=== PATIENT | female | born 1975 | race Caucasian/White ===

== ENCOUNTER 2024-05-27 11:34 | Inpatient (IN) | payer MEDICAID ==
[~2024-05-27] VITALS: Ht 170.2 cm; Wt 73.5 kg
[~2024-05-27 11:34] MED LIST: Cipro500 MG PO; Cleocin HCl150 MG PO; Pyridium200 MG PO
[2024-05-27 12:47] LABS: BASOPHILS ABSOLUTE AUTO 0.05 K/mm3 (0.00-0.23); BASOPHILS PERCENT AUTO 0 % (0-2); EOSINOPHILS ABSOLUTE AUTO 0.06 K/mm3 (0.00-0.68); EOSINOPHILS PERCENT AUTO 1 % (0-6); Hematocrit 29.3 % (33.0-51.0); Hemoglobin 8.3 g/dL (11.5-16.0); IMMATURE GRAN ABSOLUTE AUTO 0.04 K/mm3 (0.00-0.10); IMMATURE GRAN PERCENT AUTO 0 % (0-1); LYMPHOCYTES ABSOLUTE AUTO 1.05 K/mm3 (0.84-5.20); LYMPHOCYTES PERCENT AUTO 8 % (21-46); MONOCYTES ABSOLUTE AUTO 0.33 K/mm3 (0.16-1.47); MONOCYTES PERCENT AUTO 3 % (4-13); Mean Corpuscular HGB 17.3 pg (26.0-34.0); Mean Corpuscular HGB Conc 28.3 g/dL (31.5-36.5); Mean Corpuscular Volume 61 fL (80-100); Mean Platelet Volume 8.8 fL (9.1-12.4); NEUTROPHILS ABSOLUTE AUTO 10.93 K/mm3 (1.96-9.15); NEUTROPHILS PERCENT AUTO 88 % (41-73); Platelet Count 606 K/mm3 (150-400); RDW Coefficient Variation 21.3 % (11.7-14.2); RDW Standard Deviation 44.6 fL (35.1-46.3); Red Blood Cell Count 4.79 M/mm3 (3.80-5.20); White Blood Cell Count 12.46 K/mm3 (4.00-11.30)
[2024-05-27 13:04] LABS: Albumin, Blood 3.4 g/dL (3.4-5.0); Albumin/Globulin Ratio 0.7 (0.8-1.8); Bilirubin, Total 0.5 mg/dL (0.1-1.0); Calcium, Blood 9.3 mg/dL (8.5-10.1); Creatinine, Blood 0.5 mg/dL (0.40-1.00); Globulin, Blood 4.9 g/dL (2.2-4.0); Potassium, Blood 2.8 mmol/L (3.5-5.5); Total Protein, Blood 8.3 g/dL (6.4-8.2)
[2024-05-27] MEDS ORDERED: FLU VACC TS2024-25(6MOS UP)/PF 45 MCG/0.5 ML SYRINGE IM ONE ×2 (14:45→17:35)
[2024-05-27] MEDS ORDERED: FentaNYL Citrate 50 MCG/ML 2 ML Injection IV PRN (14:45)
[2024-05-27] MEDS ORDERED: Potassium Chl 20MEQ/Water100ML 100 ML IV SCH (14:50)
[2024-05-27] MEDS ORDERED: NS 1,000 ML IV ONE (15:00)
[2024-05-27] MEDS ORDERED: NS 1,000 ML IV SCH (15:15)
[2024-05-27] MEDS ORDERED: Clindamycin 900mg in D5W 50ML 50 ML IV SCH (16:00)
[2024-05-27 16:32] VITALS: BP 173/101
[2024-05-27] MEDS ORDERED: FAMO20 PO (16:40)
[2024-05-27] MEDS ORDERED: LORA10ER PO (16:40)
--- NOTE | 2024-05-27 18:41 | NUR ---
PT ADMITTED TODAY FOR GANGRENE ON LEFT FOOT R/T CAT SCRATCH IN DECEMBER PER PT. PT HAS BEEN TRYING TO GET INSURANCE, BUT DID NOT QUALIFY FOR OHP, AND DOES NOT HAVE A PCP. A&OX4, VSS WITH HTN, RA. 1 PERSON STAND PIVOT TO BSC. PAIN MANAGED WITH FENTENYL X1. PT ORIENTED TO ROOM AND EDUCATED TO PLAN.
[2024-05-27 19:38] VITALS: BP 160/100
[2024-05-28] VITALS (28 sets, daily range): BP systolic 115–174; BP diastolic 72–106
--- NOTE | 2024-05-28 04:09 | NUR ---
SUMMARY: PT A/OX4, CALLS APPROPRIATELY TO SPECIFY NEEDS AND IS PLEASANT AND COOPERATIVE W/CARE. SHE'S NON-WT.BEARING TO LLE BUT CAN PIVOT T/F W/ASSIST TO BSC PRN. 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 IV ABX RECEIVED PER EMAR AND PRN FENTANYL PROVIDED FOR TOLERABLE RELIEF OF ASSOCIATED PAIN. SHE'S BEEN HYPERTENSIVE AT TIMES WHEN PAIN IS ELEVATED, ALL OTHER VSS. NO ACUTE CHANGES. WCTM AND REPORT TO DAY RN.
[2024-05-28 05:06] LABS: Hematocrit 23.8 % (33.0-51.0); Hemoglobin 6.8 g/dL (11.5-16.0); Mean Corpuscular HGB 17.3 pg (26.0-34.0); Mean Corpuscular HGB Conc 28.6 g/dL (31.5-36.5); Mean Corpuscular Volume 61 fL (80-100); Mean Platelet Volume 8.9 fL (9.1-12.4); Platelet Count 456 K/mm3 (150-400); RDW Coefficient Variation 21.2 % (11.7-14.2); Red Blood Cell Count 3.92 M/mm3 (3.80-5.20)
[2024-05-28 05:33] LABS: Ferritin, Serum 3 ng/mL (8-252); Iron Serum 19 ug/dL (50-170); Magnesium, Blood 1.5 mg/dL (1.6-2.4); Percent Saturation 5.4 % (15.0-50.0); Total Iron Binding Capacity 351 ug/dL (250-450)
[2024-05-28 05:36] LABS: Albumin, Blood 2.8 g/dL (3.4-5.0); Anion Gap 10 mmol/L (3-11); Blood Urea Nitrogen 4 mg/dL (8-24); Bun/Creatinine Ratio 9.7 (12.0-20.0); CO2, Blood 26 mmol/L (21-32); Calcium, Blood 8.4 mg/dL (8.5-10.1); Chloride, Blood 107 mmol/L (98-108); Creatinine, Blood 0.41 mg/dL (0.40-1.00); Glomerular Filtration Rate 123 (60-); Glucose, Blood 137 mg/dL (70-99); Phosphorus, Blood 3.3 mg/dL (2.5-4.9); Sodium, Blood 140 mmol/L (136-145)
[2024-05-28] MEDS ORDERED: NS 500 ML IV SCH (07:35)
[2024-05-28] MEDS ORDERED: Tranexamic Acid 100 ML IV SCH (07:55)
[2024-05-28] MEDS ORDERED: Mag Sulfate 1 GM/D5% 100ML 100 ML IV STA (08:11)
[2024-05-28] MEDS ORDERED: HydrALAZINE HCl 20 MG / ML 1ML Vial IV PRN (08:15)
[2024-05-28] MEDS ORDERED: Potassium Chloride 20 MEQ TabCR PO ONE (09:00)
[2024-05-28] MEDS ORDERED: Losartan Potassium 25 MG Tab PO SCH (09:00)
[2024-05-28] MEDS ORDERED: Ondansetron HCl 2 MG / ML 2ML Vial IV PRN ×2 (12:15→17:15)
--- NOTE | 2024-05-28 12:30 | NUR ---
NAUSEA/VOMITING PT STARTED VOMITING AFTER TAKING HER POTASSIUM CHLORIDE. PT CONTINUED TO VOMIT INTERMITTENLY AFTERWARDS. DR. KANG NOTIFED & PURVI ORDERED.
[2024-05-28] MEDS ORDERED: Lactated Ringer's 1,000 ML IV SCH (13:05)
[2024-05-28] MEDS ORDERED: propofoL 20 ML IV ONE (13:16)
[2024-05-28] MEDS ORDERED: FentaNYL Citrate 50 MCG/ML 2 ML Injection ONE ×3 (13:16→16:12)
--- NOTE | 2024-05-28 13:21 | NUR ---
PATIENT IN DAY SURGERY, TRANSPORTED VIA BED. SPOUSE, DEEPIKA, AT BEDSIDE. History, Chart, Medications and Allergies reviewed before start of procedure. Patient confirms NPO status and agrees with scheduled surgery.
[2024-05-28] MEDS ORDERED: Lidocaine 2%-Epineph 1:200000 20 ML SDV ONE (13:33)
[2024-05-28] MEDS ORDERED: Midazolam HCl 1MG / ML 2ML Vial ONE (13:33)
[2024-05-28] MEDS ORDERED: Bupivacaine 0.5% HCl 5 MG/ML 30MLVIAL ONE (13:33)
[2024-05-28] MEDS ORDERED: Dexmedetomidine HCL 200 MCG / 2 ML ONE (13:34)
[2024-05-28] MEDS ORDERED: Lidocaine HCl 2% 20 ML MDV ONE (13:35)
--- NOTE | 2024-05-28 13:59 | NUR ---
TIME OUT FOR NERVE BLOCK WTIH DR BERGER COMPLETED AT BEDSIDE IN DAY SURGERY. MONITORS ON INCLUDING INTERMITTENT BP, CONTINUOUS PULSE OXIMETRY. 2L O2/NC INTACT PER DR BERGER.
--- NOTE | 2024-05-28 14:20 | NUR ---
DR. BERGER FINISHED WITH NERVE BLOCK.
[2024-05-28] MEDS ORDERED: HYDROmorphone HCl/Pf 1MG SYR ONE ×2 (14:52→15:50)
[2024-05-28] MEDS ORDERED: Ondansetron HCl 2 MG / ML 2ML Vial ONE (14:58)
[2024-05-28] MEDS ORDERED: Dexamethasone Sod Phos 10 MG/ML 1ML VIAL ONE (14:58)
--- NOTE | 2024-05-28 15:07 | NUR ---
TAKEN TO DAY SURGERY AT 1300. BLOOD STILL RUNNING.
[2024-05-28] MEDS ORDERED: Naloxone HCl 0.4MG / ML 1ML Vial IV PRN (17:15)
[2024-05-28] MEDS ORDERED: Ondansetron 4 MG TAB PO PRN (17:20)
[2024-05-28] MEDS ORDERED: HYDROmorphone HCl/Pf 1MG SYR IV PRN (17:20)
[2024-05-28] MEDS ORDERED: FLU VACC TS2024-25(6MOS UP)/PF 45 MCG/0.5 ML SYRINGE IM SCH (17:20)
[2024-05-28] MEDS ORDERED: Magnesium Hydroxide Conc 10 ML UDC PO PRN (17:20)
[2024-05-28] MEDS ORDERED: Metoclopramide HCl 10 MG Tab PO PRN (17:25)
[2024-05-28] MEDS ORDERED: NS KCl 20mEq 1,000 ML IV SCH (17:25)
[2024-05-28] MEDS ORDERED: DiphenhydrAMINE HCL 25 MG Cap PO PRN (17:25)
[2024-05-28] MEDS ORDERED: OxyCODONE HCL 5 MG TAB PO PRN (17:25)
[2024-05-28] MEDS ORDERED: Acetaminophen 325 MG TABLET PO PRN (17:25)
[2024-05-28] MEDS ORDERED: Bisacodyl 10 MG Supp PR PRN (17:25)
[2024-05-28] MEDS ORDERED: Ketorolac Tromethamine 15mg Vial IV PRN (17:30)
[2024-05-28 18:10] LABS: Hematocrit 31.1 % (33.0-51.0); Hemoglobin 9.4 g/dL (11.5-16.0)
--- NOTE | 2024-05-28 19:32 | NUR ---
SHIFT SUMMARY PT RECIEVED 2 UNITS OF BLOOD TODAY. HAD L BKA TODAY. DRESSING INTACT AND CLEAN AT THIS TIME. HTN T/O THE DAY. MEDICATED WITH HYDRALAZINE TWICE TODAY. PT UNABLE TO TAKE LOSARTAN THIS AM DUE TO VOMITING. MEDICATED WITH ZOFRAN TWICE WITH GOD RELIEF TODAY. PT STARTED ON CONSISTANT CARB DIET. BLOOD SUGAR CHECKS STARTED. PT EDUCATED ON THIS AND WHAT THIS DIET ENTAILS. VERY RECEPTIVE TO TEACHING. PT HAD POSITIVE BLOOD CULTURES REPORTED THIS AM. MEDICATED WITH TORADOL AFTER HER SURGERY TODAY. VS REVIEWED. SATING IN THE 90S ON 2L O2 VIA NC. PT DENIES OTHER NEEDS AT THIS TIME. CALL LIGHT IN REACH.
[2024-05-28] MEDS ORDERED: Docusate Sodium 100 MG Cap PO SCH (21:00)
[2024-05-29 00:06] VITALS: BP 153/91
[2024-05-29 03:46] VITALS: BP 162/96
--- NOTE | 2024-05-29 05:11 | NUR ---
SUMMARY: PT A/OX4, CALLS APPROPRIATELY TO SPECIFY NEEDS AND IS PLEASANT AND COOPERATIVE W/CARE. SHE'S ON BEDREST S/P L.BKA, POD 0 THIS SHIFT. PUREWIC PLACED FOR IMMOBILITY AND DIFFICULTY USING BEDPAN BUT SHE IS NOW VOIDING W/O ANY ISSUE. SURGICAL DX REMAINS C/D/I TO L.STUMP AN LEG IS ELEVATED ON PILLOWS. PRN IV TORADOL AND PO OXYCODONE WERE PROVIDED FOR TOLERABLE RELIEF OF ASSOCIATED PAIN PER EMAR. IV ABX RECEIVED AND NS W/KCL IS INFUSING. BP WAS SLIGHTLY ELEVATED THIS AM BUT SHE WAS CURRENTLY IN DISCOMFORT. LOSARTAN TO BE COMMENCED THIS AM AND NO PRN HYDRALZINE HAS BEEN REQUIRED. NO ACUTE CHANGES, VSS/AFEBRILE. WCTM AND REPORT TO DAY RN.
[2024-05-29 06:01] LABS: BASOPHILS ABSOLUTE AUTO 0.01 K/mm3 (0.00-0.23); BASOPHILS PERCENT AUTO 0 % (0-2); EOSINOPHILS PERCENT AUTO 0 % (0-6); Hematocrit 28.8 % (33.0-51.0); Hemoglobin 8.8 g/dL (11.5-16.0); IMMATURE GRAN ABSOLUTE AUTO 0.03 K/mm3 (0.00-0.10); IMMATURE GRAN PERCENT AUTO 0 % (0-1); LYMPHOCYTES ABSOLUTE AUTO 1.07 K/mm3 (0.84-5.20); LYMPHOCYTES PERCENT AUTO 10 % (21-46); MONOCYTES ABSOLUTE AUTO 0.52 K/mm3 (0.16-1.47); MONOCYTES PERCENT AUTO 5 % (4-13); Mean Corpuscular HGB 20.2 pg (26.0-34.0); Mean Corpuscular HGB Conc 30.6 g/dL (31.5-36.5); Mean Platelet Volume 8.9 fL (9.1-12.4); NEUTROPHILS ABSOLUTE AUTO 9.19 K/mm3 (1.96-9.15); NEUTROPHILS PERCENT AUTO 85 % (41-73); Platelet Count 402 K/mm3 (150-400); RDW Coefficient Variation 25.5 % (11.7-14.2); RDW Standard Deviation 58.8 fL (35.1-46.3); Red Blood Cell Count 4.36 M/mm3 (3.80-5.20); White Blood Cell Count 10.82 K/mm3 (4.00-11.30)
[2024-05-29 06:04] LABS: Mean Corpuscular Volume 66 fL (80-100)
[2024-05-29 06:29] LABS: Magnesium, Blood 1.5 mg/dL (1.6-2.4)
[2024-05-29 07:38] LABS: Albumin, Blood 2.6 g/dL (3.4-5.0); Albumin/Globulin Ratio 0.6 (0.8-1.8); Bilirubin, Total 0.5 mg/dL (0.1-1.0); Bun/Creatinine Ratio 8.1 (12.0-20.0); C-REACTIVE PROTEIN, EXT RANGE 3.99 mg/dL (0.000-0.300); Calcium, Blood 7.8 mg/dL (8.5-10.1); Creatinine, Blood 0.49 mg/dL (0.40-1.00); Potassium, Blood 3.6 mmol/L (3.5-5.5); Total Protein, Blood 6.6 g/dL (6.4-8.2)
[2024-05-29] MEDS ORDERED: Mag Sulfate 1 GM/D5% 100ML 100 ML IV STA (07:42)
[2024-05-29 07:57] VITALS: BP 164/100
[2024-05-29 15:42] VITALS: BP 165/97
[2024-05-29 17:00] VITALS: BP 175/99
[2024-05-29] MEDS ORDERED: Enoxaparin 40 MG/0.4 ML SYR SC SCH (17:00)
--- NOTE | 2024-05-29 18:13 | NUR ---
SHIFT SUMMARY PATIENT MEDICATED WITH TORADOL AND PO OXYCODONE ALTERNATING WITH GOOD EFFECT. DENIES NAUSEA AND SHORTNESS OF BREATH. TOLERATING REGULAR DIET WELL. IV FLUIDS DISCONTINUED. WORKED WITH PT AND OT. PANTIENT ABLE TO TOLERATE DANGLING AT SIDE OF BED. STUMP DRESSING C/D/I. DR. VILLATORO TO CHANGE DRESSING TOMORROW. PLEASANT AND COOPERATIVE WITH CARE.
[2024-05-29 19:07] VITALS: BP 155/87
[2024-05-30 02:55] VITALS: BP 160/91
[2024-05-30 04:53] LABS: BASOPHILS ABSOLUTE AUTO 0.04 K/mm3 (0.00-0.23); BASOPHILS PERCENT AUTO 1 % (0-2); EOSINOPHILS ABSOLUTE AUTO 0.29 K/mm3 (0.00-0.68); EOSINOPHILS PERCENT AUTO 4 % (0-6); Hematocrit 28.9 % (33.0-51.0); Hemoglobin 8.7 g/dL (11.5-16.0); IMMATURE GRAN ABSOLUTE AUTO 0.01 K/mm3 (0.00-0.10); IMMATURE GRAN PERCENT AUTO 0 % (0-1); LYMPHOCYTES ABSOLUTE AUTO 1.37 K/mm3 (0.84-5.20); LYMPHOCYTES PERCENT AUTO 18 % (21-46); MONOCYTES PERCENT AUTO 5 % (4-13); Mean Corpuscular HGB 19.7 pg (26.0-34.0); Mean Corpuscular HGB Conc 30.1 g/dL (31.5-36.5); Mean Corpuscular Volume 66 fL (80-100); Mean Platelet Volume 8.7 fL (9.1-12.4); NEUTROPHILS PERCENT AUTO 73 % (41-73); Platelet Count 422 K/mm3 (150-400); RDW Standard Deviation 59.7 fL (35.1-46.3); Red Blood Cell Count 4.41 M/mm3 (3.80-5.20); White Blood Cell Count 7.71 K/mm3 (4.00-11.30)
--- NOTE | 2024-05-30 04:57 | NUR ---
SHIFT SUMMARY; PT ALERT ORIENTED X 4ABLE TO VERBALIZE NEEDS. S/P LT BKA WITH DRESSING INTACT TO AREA. C/O PAIN TO AREA MEDICATED WITH OXYCODONE WITH GOOD PAIN RELIEF. C/O NAUSEA WITH 1 EPISODE OF VOMITING. MEDICATED WITH ZOFRAN WITH GOOD RELIEF. VSS ON RA SATTING AT 96%. REMAINS ON A BEDSIDE CONTINUOUS PU;LSE OX. IV IS SL. REMAINS NON WT BEARING TO LT LEG, FSBS AC AND HS WAS 153. HAS A PUREWICK FOR VOIDING R/T PAIN VOIDING PINK TINGED URINE R/T HER BEING ON HER PERIOD. SHE HAS A ALLERGY TO MULTIPLE FOODS SO HER BRINGS IN HER FOOD FROM HOME. SHE HAS HAD NO BM X 5 DAYS. TOOK HER COLACE BUT MAY NEED SOMETHING MORE FOR BOWEL CARE. SHES CURRENTLY RESTING IN BED AT THIS TIME WITH CALL LIGHT IN REACH
[2024-05-30 05:33] LABS: Albumin, Blood 2.7 g/dL (3.4-5.0); Albumin/Globulin Ratio 0.7 (0.8-1.8); Bilirubin, Total 0.5 mg/dL (0.1-1.0); Bun/Creatinine Ratio 6.2 (12.0-20.0); Creatinine, Blood 0.48 mg/dL (0.40-1.00); Magnesium, Blood 1.6 mg/dL (1.6-2.4); Total Protein, Blood 6.7 g/dL (6.4-8.2)
[2024-05-30 07:27] VITALS: BP 169/99
[2024-05-30] MEDS ORDERED: Potassium Chloride 20 MEQ TabCR PO ONE (08:00)
[2024-05-30] MEDS ORDERED: Arginine/Glutamine/Calcium Hmb 1 Packet PO SCH (11:35)
[2024-05-30] MEDS ORDERED: NS 250 ML IV PRN (12:30)
[2024-05-30 15:59] VITALS: BP 168/97
[2024-05-30 18:08] VITALS: BP 159/92
--- NOTE | 2024-05-30 18:09 | NUR ---
SHIFT SUMMARY PT A&OX4, UP IN THE CHAIR AND BSC T/O SHIFT, TOLERATING PO, VOIDING, AND PAIN MANAGED PER EMAR. PT HYPERTENSIVE AND MEDICATED PER EMAR. BP MINIMALLY IMPROVED W/ PRN. STUMP DRESSING CHANGED BY THIS SHIFT. PT WORKED W/ PHYSICAL AND OCCUPATIONAL THERAPY, SEE THERAPY NOTES. NO OTHER ACUTE CHANGES. CALL LIGHT WITHIN REACH AND PT ABLE TO MAKE NEEDS KNOWN.
[2024-05-30 19:29] VITALS: BP 150/92
--- NOTE | 2024-05-31 03:08 | NUR ---
SHIFT SUMMARY; PT ALERT ORIENTED X 4, SLEPTMOST OF THE SHIFT, LT BKA WITH DRESSING INTACT. SHE STATED THAT HER PAINS UNDER CONTROL. HER STAYED AT THE BEDSIDE.REMAINS NON WEIGHT BEARING TO LT LEG. PUREWICK ON IN BED WITH DARK RED BLEEDING R/T HER MENSRUAL CYCLE. FSBS ARE AC AND HS WAS 121. REMAINS ON A CONTINUOUS BEDSIDE PULSE OX MONITOR. VSS ON RA. SLEEPING IN BED AT THIS TIME
[2024-05-31 04:53] VITALS: BP 174/107
[2024-05-31 05:10] LABS: BASOPHILS ABSOLUTE AUTO 0.03 K/mm3 (0.00-0.23); BASOPHILS PERCENT AUTO 1 % (0-2); EOSINOPHILS ABSOLUTE AUTO 0.37 K/mm3 (0.00-0.68); EOSINOPHILS PERCENT AUTO 7 % (0-6); Hematocrit 31.8 % (33.0-51.0); Hemoglobin 9.5 g/dL (11.5-16.0); IMMATURE GRAN ABSOLUTE AUTO 0.01 K/mm3 (0.00-0.10); IMMATURE GRAN PERCENT AUTO 0 % (0-1); LYMPHOCYTES ABSOLUTE AUTO 1.63 K/mm3 (0.84-5.20); LYMPHOCYTES PERCENT AUTO 31 % (21-46); MONOCYTES ABSOLUTE AUTO 0.31 K/mm3 (0.16-1.47); MONOCYTES PERCENT AUTO 6 % (4-13); Mean Corpuscular HGB 19.7 pg (26.0-34.0); Mean Corpuscular HGB Conc 29.9 g/dL (31.5-36.5); Mean Corpuscular Volume 66 fL (80-100); Mean Platelet Volume 8.4 fL (9.1-12.4); NEUTROPHILS ABSOLUTE AUTO 2.94 K/mm3 (1.96-9.15); NEUTROPHILS PERCENT AUTO 56 % (41-73); Platelet Count 457 K/mm3 (150-400); RDW Standard Deviation 61.8 fL (35.1-46.3); Red Blood Cell Count 4.82 M/mm3 (3.80-5.20); White Blood Cell Count 5.29 K/mm3 (4.00-11.30)
[2024-05-31 05:40] VITALS: BP 162/88
[2024-05-31 05:46] LABS: Bun/Creatinine Ratio 16.7 (12.0-20.0); Calcium, Blood 8.9 mg/dL (8.5-10.1); Creatinine, Blood 0.42 mg/dL (0.40-1.00); Magnesium, Blood 1.5 mg/dL (1.6-2.4); Potassium, Blood 3.4 mmol/L (3.5-5.5)
[2024-05-31] MEDS ORDERED: Mag Sulfate 1 GM/D5% 100ML 100 ML IV STA (08:01)
[2024-05-31 08:48] VITALS: BP 153/91
[2024-05-31] MEDS ORDERED: Losartan Potassium 50 MG Tab PO SCH (09:00)
[2024-05-31] MEDS ORDERED: FAMO20 PO (12:44)
[2024-05-31] MEDS ORDERED: LOSA50 PO (12:44)
[2024-05-31] MEDS ORDERED: KETO10 PO (12:45)
[2024-05-31] MEDS ORDERED: OXYC5 PO (12:45)
--- NOTE | 2024-05-31 14:19 | NUR ---
DISCHARGE NOTE PT DISCHARGED HOME AT APPROX 1410. PT PROVIDED W/ VERBAL AND WRITTEN INSTRUCTIONS. PT A&OX4, VSS, AMB TO THE CHAIR AND BSC W/ ASSIST, TOLERATING PO, VOIDING, AND PAIN MANAGED PER EMAR. PT GIVEN HARD SCRIPTS AND PROVIDED W/ STUMP SOCKS AND DRESSING SUPPLIES. BELONGINGS WERE RETURNED AND PT ESCOURTED OUT VIA W/C BY PT'S .
== END 2024-05-31 14:26 | disposition home health service (06) | DRG 240 ==
LOC: ER 11:34 → MEDS 14:44
PROVIDERS: Hospitalist; Orthopaedic Surgery; Physician Assistant; ADMIT Internal Medicine
PROC: 30233N1 Transfusion of Nonautologous Red Blood Cells into Peripheral Vein, Percutaneous Approach (ICD-10-PCS; 2024-05-28)
PROC: 0Y6J0Z1 Detachment at Left Lower Leg, High, Open Approach (ICD-10-PCS; principal; 2024-05-28 14:00)
DX: E11.52 Type 2 diabetes mellitus with diabetic peripheral angiopathy with gangrene (principal); I96 Gangrene, not elsewhere classified; J45.909 Unspecified asthma, uncomplicated; D57.3 Sickle-cell trait; E87.6 Hypokalemia; F41.9 Anxiety disorder, unspecified; K21.9 Gastro-esophageal reflux disease without esophagitis; Z88.1 Allergy status to other antibiotic agents; Z88.0 Allergy status to penicillin; Z88.2 Allergy status to sulfonamides; Z88.8 Allergy status to other drugs, medicaments and biological substances; Z90.49 Acquired absence of other specified parts of digestive tract; Z98.890 Other specified postprocedural states; Z87.891 Personal history of nicotine dependence; Z79.2 Long term (current) use of antibiotics
CPT/HCPCS: 36415; 36430; 73610; 80048; 80053; 80069; 81025; 82728; 82947; 83540; 83550; 83605; 83735; 84100; 84443; 85014; 85018; 85025; 85027; 85651; 86140; 86850; 86900; 86901; 86920; 86923; 87040; 87077; 88307; 93005; 93010; 94760; 94762; 97110; 97162; 97165; 97530; 97535; 99284-25; A9270; J0360; J1100; J1170; J1650; J1885; J2250; J2405; J2704; J3010; J3475; J3480; J7030; J7040; J7120; P9016

== ENCOUNTER → 2025-02-28 | Outpatient (CLI) | payer OTHER ==
[~2025-02-28] MED LIST changes: +FAMO20 PO; +KETO10 PO; +LORA10ER PO; +LOSA50 PO; +OXYC5 PO
[2025-02-28 11:23] LABS: BASOPHILS ABSOLUTE AUTO 0.06 K/mm3 (0.00-0.23); BASOPHILS PERCENT AUTO 1 % (0-2); EOSINOPHILS ABSOLUTE AUTO 0.24 K/mm3 (0.00-0.68); EOSINOPHILS PERCENT AUTO 4 % (0-6); Hematocrit 25.7 % (33.0-51.0); Hemoglobin 6.9 g/dL (11.5-16.0); IMMATURE GRAN ABSOLUTE AUTO 0.01 K/mm3 (0.00-0.10); IMMATURE GRAN PERCENT AUTO 0 % (0-1); LYMPHOCYTES ABSOLUTE AUTO 2.51 K/mm3 (0.84-5.20); LYMPHOCYTES PERCENT AUTO 41 % (21-46); MONOCYTES ABSOLUTE AUTO 0.38 K/mm3 (0.16-1.47); MONOCYTES PERCENT AUTO 6 % (4-13); Mean Corpuscular HGB Conc 26.8 g/dL (31.5-36.5); Mean Corpuscular Volume 58 fL (80-100); NEUTROPHILS ABSOLUTE AUTO 2.86 K/mm3 (1.96-9.15); NEUTROPHILS PERCENT AUTO 47 % (41-73); NRBC ABSOLUTE 0.00 K/mm3 (0.00-0.02); NRBC Auto 0.0 /100 WBC (0.0-0.2); Platelet Count 422 K/mm3 (150-400); RDW Coefficient Variation 20.0 % (11.7-14.2); RDW Standard Deviation 40.1 fL (35.1-46.3)
[2025-02-28 12:12] LABS: Alanine Aminotransfer (ALT/SGP 16 U/L (12-78); Albumin, Blood 3.8 g/dL (3.4-5.0); Albumin/Globulin Ratio 1.0 (0.8-1.8); Anion Gap 7 mmol/L (3-11); Aspartate Aminotrans (AST/SGOT 8 U/L (12-37); Bilirubin, Total 0.2 mg/dL (0.1-1.0); Blood Urea Nitrogen 14 mg/dL (8-24); CHOL/HDL RATIO 3.6; CO2, Blood 25 mmol/L (21-32); Calcium, Blood 8.8 mg/dL (8.5-10.1); Chloride, Blood 108 mmol/L (98-108); Cholesterol 171 mg/dL (50-200); Creatinine, Blood 0.53 mg/dL (0.40-1.00); Globulin, Blood 3.7 g/dL (2.2-4.0); Glucose, Blood 109 mg/dL (70-99); HDL Cholesterol 48 mg/dL (>39); LDL/HDL RATIO 2.2; Low Density Lipoprotein Chol 104 mg/dL (0-110); Potassium, Blood 3.9 mmol/L (3.5-5.5); Sodium, Blood 136 mmol/L (136-145); Total Iron Binding Capacity 417 ug/dL (250-450); Total Protein, Blood 7.5 g/dL (6.4-8.2); Triglycerides 94 mg/dL (30-160); Very Low Density Lipoprot Chol 18 mg/dL (6-32)
[2025-02-28 12:15] LABS: Ferritin, Serum <1 ng/mL (8-252)
== END ==
LOC: LAB 10:37 → LAB SHORT 10:37
PROVIDERS: Nurse Practitioner Family
DX: D50.9 Iron deficiency anemia, unspecified (principal); R73.9 Hyperglycemia, unspecified
CPT/HCPCS: 80053; 80061; 82728; 83036; 83540; 83550; 85025

== ENCOUNTER 2025-03-20 11:01 | Day surgery (SDC) | payer OTHER ==
[2025-03-19 12:17] LABS: BASOPHILS ABSOLUTE AUTO 0.03 K/mm3 (0.00-0.23); BASOPHILS PERCENT AUTO 0 % (0-2); EOSINOPHILS ABSOLUTE AUTO 0.12 K/mm3 (0.00-0.68); EOSINOPHILS PERCENT AUTO 1 % (0-6); Hematocrit 25.4 % (33.0-51.0); Hemoglobin 6.8 g/dL (11.5-16.0); IMMATURE GRAN ABSOLUTE AUTO 0.02 K/mm3 (0.00-0.10); IMMATURE GRAN PERCENT AUTO 0 % (0-1); LYMPHOCYTES ABSOLUTE AUTO 1.71 K/mm3 (0.84-5.20); LYMPHOCYTES PERCENT AUTO 21 % (21-46); MONOCYTES ABSOLUTE AUTO 0.33 K/mm3 (0.16-1.47); MONOCYTES PERCENT AUTO 4 % (4-13); Mean Corpuscular HGB Conc 26.8 g/dL (31.5-36.5); Mean Corpuscular Volume 58 fL (80-100); NEUTROPHILS ABSOLUTE AUTO 6.10 K/mm3 (1.96-9.15); NEUTROPHILS PERCENT AUTO 73 % (41-73); NRBC ABSOLUTE 0.00 K/mm3 (0.00-0.02); NRBC Auto 0.0 /100 WBC (0.0-0.2); Platelet Count 573 K/mm3 (150-400); RDW Coefficient Variation 20.9 % (11.7-14.2); RDW Standard Deviation 40.5 fL (35.1-46.3)
[2025-03-20] MEDS ORDERED: NS 250 ML IV SCH (11:35)
[2025-03-20 13:36] VITALS: BP 166/101
[2025-03-20 13:57] VITALS: BP 151/90
[2025-03-20 14:55] VITALS: BP 146/105
[2025-03-20 15:35] VITALS: BP 154/102
== END 2025-03-20 15:39 | disposition home or self-care (01) ==
LOC: ATC 11:01 → EDSTATUS 03-22 13:30
PROVIDERS: Registered Nurse Oncology
DX: D50.9 Iron deficiency anemia, unspecified (principal); D57.3 Sickle-cell trait; E78.5 Hyperlipidemia, unspecified; K21.9 Gastro-esophageal reflux disease without esophagitis; R73.03 Prediabetes; Z87.891 Personal history of nicotine dependence; Z79.899 Other long term (current) drug therapy; Z88.0 Allergy status to penicillin; Z88.1 Allergy status to other antibiotic agents; Z88.2 Allergy status to sulfonamides; Z88.3 Allergy status to other anti-infective agents; Z88.8 Allergy status to other drugs, medicaments and biological substances; Z91.013 Allergy to seafood; Z89.512 Acquired absence of left leg below knee
CPT/HCPCS: 36415; 36430; 85025; 86850; 86900; 86901; 86923; J7050; P9016

== ENCOUNTER → 2025-07-23 | Outpatient (CLI) | payer OTHER ==
[2025-07-23 16:33] LABS: BASOPHILS ABSOLUTE AUTO 0.03 K/mm3 (0.00-0.23); BASOPHILS PERCENT AUTO 1 % (0-2); EOSINOPHILS ABSOLUTE AUTO 0.21 K/mm3 (0.00-0.68); EOSINOPHILS PERCENT AUTO 4 % (0-6); Hematocrit 36.3 % (33.0-51.0); Hemoglobin 11.5 g/dL (11.5-16.0); IMMATURE GRAN ABSOLUTE AUTO 0.01 K/mm3 (0.00-0.10); IMMATURE GRAN PERCENT AUTO 0 % (0-1); LYMPHOCYTES ABSOLUTE AUTO 2.17 K/mm3 (0.84-5.20); LYMPHOCYTES PERCENT AUTO 40 % (21-46); MONOCYTES ABSOLUTE AUTO 0.23 K/mm3 (0.16-1.47); MONOCYTES PERCENT AUTO 4 % (4-13); Mean Corpuscular HGB Conc 31.7 g/dL (31.5-36.5); Mean Corpuscular Volume 81 fL (80-100); NEUTROPHILS ABSOLUTE AUTO 2.83 K/mm3 (1.96-9.15); NEUTROPHILS PERCENT AUTO 52 % (41-73); NRBC ABSOLUTE 0.00 K/mm3 (0.00-0.02); NRBC Auto 0.0 /100 WBC (0.0-0.2); Platelet Count 341 K/mm3 (150-400); RDW Coefficient Variation 14.8 % (11.7-14.2); RDW Standard Deviation 43.2 fL (35.1-46.3)
[2025-07-24 08:23] LABS: Ferritin, Serum 7.0 ng/mL (8-252); Total Iron Binding Capacity 360.0 ug/dL (250-450)
== END | disposition home or self-care (01) ==
LOC: LAB SHORT 15:13 → LAB 15:13
PROVIDERS: Student in an Organized Health Care Education/Training Program
DX: D64.9 Anemia, unspecified (principal)
CPT/HCPCS: 82728; 83540; 83550; 85025